=== PATIENT | female | born 1955 | race Caucasian/White ===

== ENCOUNTER 2020-04-06 07:40 | Emergency (ER) | payer SELFPAY ==
[2020-04-06 10:27] LABS: Protime INR 0.97
[2020-04-06 10:33] LABS: Absolute Lymphocytes (CBC) 1.7 K/uL (0.7-4.9); Basophils % 0.8 % (0-1.3); Hematocrit 49.8 % (36.0-45.0); Lymphocytes % 20.5 % (15.3-44.8); MPV 7.8 fL (7.6-11.3); RBC Red Blood Cell Count 5.41 M/uL (3.86-4.86)
[2020-04-06 10:43] LABS: ALT/SGPT 58 U/L (12-78); AST/SGOT 34 U/L (15-37); Albumin 4.7 g/dL (3.4-5.0); Alkaline Phosphatase 120 U/L (45-117); BUN Blood Urea Nitrogen 19 mg/dL (7-18); Bicarbonate 27 mmol/L (21-32); Bilirubin Direct < 0.1 mg/dL (0-0.2); Bilirubin Total 0.3 mg/dL (0.2-1.0); Glucose Level 94 mg/dL (74-106); Magnesium 2.5 mg/dL (1.8-2.4); NT PRO-BNP 97 pg/mL (<125); Protein, Total 8.9 g/dL (6.4-8.2); Sodium Level 139 mmol/L (136-145); Troponin (Emerg Dept Use Only) < 0.02 ng/mL (0.0-0.045)
--- NOTE | 2020-04-06 10:54 | RAD REPORT ---
EXAM DESCRIPTION: Mario Single View04/06/2020 10:49 am CLINICAL HISTORY: Chest pain COMPARISON: none FINDINGS: The lungs are moderately to markedly hyperaerated. The lungs appear clear of acute infiltrate. The heart is normal size IMPRESSION: COPD without visualization acute abnormality
--- NOTE | 2020-04-06 11:32 | ER ---
Nurse's Notes [facility] Name: Kallie Garcia Age: 64 yrs Sex: Female : 1955 Arrival Date: 04/06/2020 Time: 07:44 Bed 3 Private MD: Diagnosis: Chronic fatigue, unspecified Presentation: 04/06 07:46 Chief complaint: Patient states: "I was trying to get ready for work and this morning I ss got so fatigued. I couldn't walk. I couldn't do anything.". Coronavirus screen: Client denies travel out of the [place] in the last 14 days. Ebola Screen: Patient denies exposure to infectious person. Patient denies travel to an Ebola-affected area in the 21 days before illness onset. Initial Sepsis Screen: Does the patient meet any 2 criteria? No. Patient's initial sepsis screen is negative. Does the patient have a suspected source of infection? No. Patient's initial sepsis screen is negative. Risk Assessment: Do you want to hurt yourself or someone else? Patient reports no desire to harm self or others. Onset of symptoms was April 06, 2020. 07:46 Method Of Arrival: Ambulatory ss 07:46 Acuity: LUCINA 3 ss Historical: - Allergies: 07:49 No Known Allergies; ss - Home Meds: 07:49 None [Active]; ss - PMHx: 07:49 COPD; ss - PSHx: 07:49 Appendectomy; nephrectomy; ss - Immunization history:: Adult Immunizations unknown. - Social history:: Smoking status: Patient reports the use of cigarette tobacco products, 1.5 ppd, Patient/guardian denies using alcohol, street drugs, The patient lives with family. - Family history:: not pertinent. Screenin:18 Abuse screen: Denies threats or abuse. Denies injuries from another. Nutritional hb screening: No deficits noted. Tuberculosis screening: No symptoms or risk factors identified. Fall Risk None identified. Assessment: 10:18 General: Appears in no apparent distress. Behavior is calm, cooperative. Pain: Denies hb pain. Neuro: Level of Consciousness is awake, alert, obeys commands, Oriented to person, place, time, situation. Cardiovascular: Capillary refill < 3 seconds Patient's skin is warm and dry. Respiratory: Respiratory effort is even, unlabored, Respiratory pattern is regular, symmetrical. GI: No signs and/or symptoms were reported involving the gastrointestinal system. : No signs and/or symptoms were reported regarding the genitourinary system. EENT: No signs and/or symptoms were reported regarding the EENT system. Derm: Skin is pink, warm \\T\\ dry. Musculoskeletal: No signs and/or symptoms reported regarding the musculoskeletal system. Vital Signs: 07:49 BP 137 / 80; Pulse 91; Resp 18; Temp 98.3(TE); Pulse Ox 97% on R/A; Weight 62.6 kg; ss Height 6 ft. 0 in. (182.88 cm); Pain 0/10; 07:49 Body Mass Index 18.72 (62.60 kg, 182.88 cm) ED Course: 07:44 Patient arrived in ED. mr 07:48 Triage completed. ss 07:49 Arm band placed on right wrist. 09:59 Ophelia Marks MD is Attending Physician. ma2 10:05 Evelin Rodriguez RN is Primary Nurse. hb 10:14 Inserted saline lock: 20 gauge in right antecubital area, using aseptic technique. hb Blood collected. 10:18 Patient has correct armband on for positive identification. Bed in low position. Call hb light in reach. Side rails up X 1. 10:49 XRAY Chest (1 view) In Process Unspecified. EDMS 11:15 Basic Metabolic Panel Sent. sv 11:47 No provider procedures requiring assistance completed. Patient did not have IV access ss during this emergency room visit. Administered Medications: No medications were administered Outcome: 11:31 Discharge ordered by . ma 11:47 Discharged to home via wheelchair, with family. ss 11:47 Condition: good 11:47 Discharge instructions given to patient, family, Instructed on discharge instructions, follow up and referral plans. Demonstrated understanding of instructions, follow-up care. 11:48 Patient left the ED. Signatures: Dispatcher [employer] EDMS Kymberly Pereira RN RN sv Rivera Melony GundersonLeyda sheehan RN RN Evelin Rodriguez, KYAW CARD Ophelia Marks MD MD ma2
--- NOTE | 2020-04-06 11:32 | EDPHYS ---
Physician Documentation [facility] Name: Kallie Garcia Age: 64 yrs Sex: Female : 1955 Arrival Date: 04/06/2020 Time: 07:44 Bed 3 Private MD: ED Physician Ophelia Marks HPI: 04/06 10:44 This 64 yrs old Female presents to ER via Ambulatory with complaints of ma2 Fatigue. 10:44 Onset: The symptoms/episode began/occurred gradually, 1 day(s) ago. Severity of ma2 symptoms: At their worst the symptoms were moderate in the emergency department the symptoms are unchanged. The patient has not experienced similar symptoms in the past. Historical: - Allergies: 07:49 No Known Allergies; ss - Home Meds: 07:49 None [Active]; ss - PMHx: 07:49 COPD; ss - PSHx: 07:49 Appendectomy; nephrectomy; ss - Immunization history:: Adult Immunizations unknown. - Social history:: Smoking status: Patient reports the use of cigarette tobacco products, 1.5 ppd, Patient/guardian denies using alcohol, street drugs, The patient lives with family. - Family history:: not pertinent. ROS: 10:44 Constitutional: Negative for fever, chills, and weight loss. ma2 10:44 All other systems are negative. Exam: 10:44 Constitutional: This is a well developed, well nourished patient who is awake, alert, ma2 and in no acute distress. Head/Face: Normocephalic, atraumatic. Eyes: Pupils equal round and reactive to light, extra-ocular motions intact. Lids and lashes normal. Conjunctiva and sclera are non-icteric and not injected. Cornea within normal limits. Periorbital areas with no swelling, redness, or edema. ENT: Nares patent. No nasal discharge, no septal abnormalities noted. Tympanic membranes are normal and external auditory canals are clear. Oropharynx with no redness, swelling, or masses, exudates, or evidence of obstruction, uvula midline. Mucous membranes moist. Neck: Trachea midline, no thyromegaly or masses palpated, and no cervical lymphadenopathy. Supple, full range of motion without nuchal rigidity, or vertebral point tenderness. No Meningismus. Chest/axilla: Normal chest wall appearance and motion. Nontender with no deformity. No lesions are appreciated. Cardiovascular: Regular rate and rhythm with a normal S1 and S2. No gallops, murmurs, or rubs. Normal PMI, no JVD. No pulse deficits. Respiratory: Lungs have equal breath sounds bilaterally, clear to auscultation and percussion. No rales, rhonchi or wheezes noted. No increased work of breathing, no retractions or nasal flaring. Abdomen/GI: Soft, non-tender, with normal bowel sounds. No distension or tympany. No guarding or rebound. No evidence of tenderness throughout. Back: No spinal tenderness. No costovertebral tenderness. Full range of motion. Skin: Warm, dry with normal turgor. Normal color with no rashes, no lesions, and no evidence of cellulitis. MS/ Extremity: Pulses equal, no cyanosis. Neurovascular intact. Full, normal range of motion. Neuro: Awake and alert, GCS 15, oriented to person, place, time, and situation. Cranial nerves II-XII grossly intact. Motor strength 5/5 in all extremities. Sensory grossly intact. Cerebellar exam normal. Normal gait. Psych: Awake, alert, with orientation to person, place and time. Behavior, mood, and affect are within normal limits. Vital Signs: 07:49 BP 137 / 80; Pulse 91; Resp 18; Temp 98.3(TE); Pulse Ox 97% on R/A; Weight 62.6 kg; ss Height 6 ft. 0 in. (182.88 cm); Pain 0/10; 07:49 Body Mass Index 18.72 (62.60 kg, 182.88 cm) MDM: 10:22 Patient medically screened. nc2 10:44 Differential Diagnosis. nc2 11:31 Data reviewed: vital signs, nurses notes. Counseling: I had a detailed discussion with ma2 the patient and/or guardian regarding: the historical points, exam findings, and any diagnostic results supporting the discharge/admit diagnosis, the presence of at least one elevated blood pressure reading (>120/80) during this emergency department visit, the need for outpatient follow up. Response to treatment: the patient's symptoms have markedly improved after treatment. 04/06 10:01 Order name: Basic Metabolic Panel nc2 04/06 10:01 Order name: CBC with Diff; Complete Time: 11:21 ma2 04/06 10:01 Order name: LFT's; Complete Time: : nc04/06 10:01 Order name: Magnesium; Complete Time: : [facility] 04/06 10:01 Order name: NT PRO-BNP; Complete Time: : [facility] 04/06 10:01 Order name: PT-INR; Complete Time: : [facility] 04/06 10:01 Order name: Troponin (emerg Dept Use Only); Complete Time: 11: [facility] 04/06 10:01 Order name: XRAY Chest (1 view); Complete Time: : [facility] 04/06 10:01 Order name: EKG; Complete Time: :04/06 10:01 Order name: Cardiac monitoring; Complete Time: : [facility] 04/06 10:01 Order name: EKG - Nurse/Tech; Complete Time: : [facility] 04/06 10:01 Order name: IV Saline Lock; Complete Time: [facility] 04/06 10:01 Order name: Labs collected and sent; Complete Time: 04/06 10:01 Order name: Basic Metabolic Panel; Complete Time: : [facility] 04/06 10:01 Order name: O2 Per Protocol; Complete Time: [facility] 04/06 10:01 Order name: O2 Sat Monitoring; Complete Time: 10:18 ma2 Administered Medications: No medications were administered Disposition: 04/06/20 11:31 Discharged to Home. Impression: Chronic fatigue, unspecified. - Condition is Stable. - Discharge Instructions: Fatigue, Weakness, [id number]. - Prescriptions for Hydrocortisone 0.5 % Topical Cream - apply 1 application by TOPICAL route every 12 hours As needed; 30 gram. - Medication Reconciliation Form, Thank You Letter, Antibiotic Education, Prescription Opioid Use form. - Follow up: Private Physician; When: Tomorrow; Reason: If symptoms return. Signatures: Dispatcher [employer] Leyda Colunga RN RN Evelin Rodriguez RN RN Ophelia Marks MD MD nc2 Corrections: (The following items were deleted from the chart) 11:48 11:31 04/06/2020 11:31 Discharged to Home. Impression: Chronic fatigue, unspecified. ss Condition is Stable. Prescriptions for Hydrocortisone 0.5 % Topical Cream - apply 1 application by TOPICAL route every 12 hours As needed; 30 gram. and Forms are Medication Reconciliation Form, Thank You Letter, Antibiotic Education, Prescription Opioid Use. Follow up: Private Physician; When: Tomorrow; Reason: If symptoms return. ma2
[2020-04-06 11:54] VITALS: BP 137/80; TEMP 98.3; O2SAT 97
== END 2020-04-06 11:48 | disposition home or self-care (01) ==
LOC: ER 07:40
DX: R53.82 Chronic fatigue, unspecified (principal); F17.210 Nicotine dependence, cigarettes, uncomplicated
CPT/HCPCS: 36415; 71045; 80048; 80076; 83735; 83880; 84484; 85025; 85610; 99283

== ENCOUNTER 2022-03-02 11:55 | Emergency (ER) | payer SELFPAY ==
--- OUTSIDE RECORDS SUMMARY | 2022-03-02 11:57 | XMS REPORT | Continuity of Care Document ---
:1955 Author Organization [facility] t Address [address] [place] [address] Care Team Providers Name Role Phone JOCY GAYTAN Primary Care Physician Unavailable CARMEL ALAMO Attending Clinician Unavailable Carmel Alamo MD Attending Clinician CARMEL ALAMO Admitting Clinician Unavailable Problems Condition Condition Condition Status Onset Resolution Last Treating Co mments Source Name Details Category Date Date Treatment Clinician Date No known No known Disease Unive rs active active ity of problems problems [facility] Allergies, Adverse Reactions, Alerts Allergy Allergy Status Severity Reaction(s) Onset Inactive Treating Comm ents Source Name Type Date Date Clinician NO KNOWN Drug Active Univers ALLERGIE Class ity of S [facility] Social History Social Habit Start Date Stop Date Quantity Comments Source Exposure to 2022-02-09 2022-02-19 Not sure [facility] SARS-CoV-2 (event) 00:00:00 09:07:00 Medica l Branch Sex Ass[birth year] [facility] 00:00:00 00:00:00 Medical Branch Smoking Status Start Date Stop Date Source Tobacco smoking consumption Univ [facility] Medical unknown Branch Medications Ordered Filled Start Stop Current Ordering Indication Dosage Frequency Signature Comments Components Source Medication Medication Date Date Medication? Clinician (SIG) Name Name nitroglycer 3-[address] 1 Uni vers in 0.4 mg 1-02 tablet ity of sublingual 00:00: under the [place] tablet 00 tongue Medical every 5 Branch (five) minutes as needed for Chest pain. aspirin 81 2022-0 Yes 81mg Take 1 Unive rs mg chewable 1-02 tablet by ity of tablet 00:00: mouth in [place] 00 the Medical morning. Branch metoprolol 3-0 Yes [id number] 25mg Take 1 U nivers succinate 1-02 tablet by ity o f XL 25 mg 24 00:00: mouth in [place] hr tablet 00 the Medical morning. Branch nitroglycer 3-[address] 1 Uni vers in 0.4 mg 1-02 tablet ity of sublingual 00:00: under the [place] tablet 00 tongue Medical every 5 Branch (five) minutes as needed for Chest pain. aspirin 81 2022-0 Yes 81mg Take 1 Unive rs mg chewable 1-02 tablet by ity of tablet 00:00: mouth in [place] 00 the Medical morning. Branch metoprolol 3-0 Yes [id number] 25mg Take 1 U nivers succinate 1-02 tablet by ity o f XL 25 mg 24 00:00: mouth in [place] hr tablet 00 the Medical morning. Branch nitroglycer 3-[address] 1 Uni vers in 0.4 mg 1-02 tablet ity of sublingual 00:00: under the [place] tablet 00 tongue Medical every 5 Branch (five) minutes as needed for Chest pain. aspirin 81 3-0 Yes 81mg Take 1 Unive rs mg chewable 1-02 tablet by ity of tablet 00:00: mouth in [place] 00 the Medical morning. Branch metoprolol 2023-0 Yes [id number] 25mg Take 1 U nivers succinate 1-02 tablet by ity o f XL 25 mg 24 00:00: mouth in [place] hr tablet 00 the Medical morning. Branch metoprolol 2023-0 Yes 25mg Take 1 Unive rs succinate 1-02 tablet by ity o f XL 25 mg 24 00:00: mouth in [place] hr tablet 00 the Medical morning. Branch nitroglycer 2023-[address] 1 Uni vers in 0.4 mg 1-02 tablet ity of sublingual 00:00: under the [place] tablet 00 tongue Medical every 5 Branch (five) minutes as needed for Chest pain. aspirin 81 Yes 81mg Take 1 Unive rs mg chewable 02 tablet by ity of tablet 00:00: mouth in [place] 00 the Medical morning. Branch metoprolol 2022-0 2023- No 25mg Take 1 Univ ers succinate 02-19- tablet by ity of XL 25 mg 24 00:00: 00:00 mouth in [place] hr tablet 00 :00 the Medical morning. Branch losartan 25 2021-02 Yes [id number] 25mg Take 25 mg Univers mg tablet 0-18 by mouth ity of 00:00: in the [place] 00 morning. Medical Branch fluticasone 2021-02 Yes [id number] TAKE 1 Univers propion-luis 0-18 PUFF BY ity o f meteroL 00:00: MOUTH [place] TWICE A Medical mcg/actuati DAY Branch on AePB FLUoxetine 2021-02 Yes [id number] 20mg Take 20 mg Univers 20 mg 0-18 by mouth ity of capsule 00:00: in the [place] 00 morning. Medical Branch losartan 25 2021-02 Yes [id number] 25mg Take 25 mg Univers mg tablet 0-18 by mouth ity of 00:00: in the [place] 00 morning. Medical Branch fluticasone 2021-02 Yes [id number] TAKE 1 Univers propion-luis 0-18 PUFF BY ity o f meteroL 00:00: MOUTH TWICE A Medical mcg/actuati DAY Branch on AePB FLUoxetine 2021-02 Yes [id number] 20mg Take 20 mg Univers 20 mg 0-18 by mouth ity of capsule 00:00: in the [place] 00 morning. Medical Branch losartan 25 2021-02 Yes [id number] 25mg Take 25 mg Univers mg tablet 0-18 by mouth ity of 00:00: in the [place] 00 morning. Medical Branch fluticasone 2021-02 Yes [id number] TAKE 1 Univers propion-luis 0-18 PUFF BY ity o f meteroL 00:00: MOUTH TWICE A Medical mcg/actuati DAY Branch on AePB FLUoxetine 2021-02 Yes [id number] 20mg Take 20 mg Univers 20 mg 0-18 by mouth ity of capsule 00:00: in the [place] 00 morning. Medical Branch losartan 25 2021-02 Yes [id number] 25mg Take 25 mg Univers mg tablet 0-18 by mouth ity of 00:00: in the [place] 00 morning. Medical Branch fluticasone 2021-02 Yes [id number] TAKE 1 Univers propion-luis 0-18 PUFF BY ity o f meteroL 00:00: MOUTH TWICE A Medical mcg/actuati DAY Branch on AePB FLUoxetine 2021-02 Yes [id number] 20mg Take 20 mg Univers 20 mg 0-18 by mouth ity of capsule 00:00: in the [place] 00 morning. Medical Branch losartan 25 2021-02 Yes [id number] 25mg Take 25 mg Univers mg tablet 0-18 by mouth ity of 00:00: in the [place] 00 morning. Medical Branch fluticasone 2021-02 Yes [id number] TAKE 1 Univers propion-luis 0-18 PUFF BY ity o f meteroL 00:00: MOUTH TWICE A Medical mcg/actuati DAY Branch on AePB FLUoxetine 2021-02 Yes [id number] 20mg Take 20 mg Univers 20 mg 0-18 by mouth ity of capsule 00:00: in the [place] 00 morning. Medical Branch losartan 25 2021-02 Yes [id number] 25mg Take 25 mg Univers mg tablet 0-18 by mouth ity of 00:00: in the [place] 00 morning. Medical Branch fluticasone 2021-02 Yes [id number] TAKE 1 Univers propion-luis 0-18 PUFF BY ity o f meteroL 00:00: MOUTH TWICE A Medical mcg/actuati DAY Branch on AePB FLUoxetine 2021-02 Yes [id number] 20mg Take 20 mg Univers 20 mg 0-18 by mouth ity of capsule 00:00: in the [place] 00 morning. Medical Branch losartan 25 2021-02 Yes [id number] 25mg Take 25 mg Univers mg tablet 0-18 by mouth ity of 00:00: in the [place] 00 morning. Medical Branch fluticasone 2021-02 Yes [id number] TAKE 1 Univers propion-luis 0-18 PUFF BY ity o f meteroL 00:00: MOUTH [place] 232-14 00 TWICE A Medical mcg/actuati DAY Branch on AePB FLUoxetine 2021-02 Yes [id number] 20mg Take 20 mg Univers 20 mg 0-18 by mouth ity of capsule 00:00: in the [place] 00 morning. Medical Branch losartan 25 2021-02 Yes [id number] 25mg Take 25 mg Univers mg tablet 0-18 by mouth ity of 00:00: in the [place] 00 morning. Medical Branch fluticasone 2021-02 Yes [id number] TAKE 1 Univers propion-luis 0-18 PUFF BY ity o f meteroL 00:00: MOUTH [place] [address] 00 TWICE A Medical mcg/actuati DAY Branch on AePB FLUoxetine 2021-02 Yes [id number] 20mg Take 20 mg Univers 20 mg 0-18 by mouth ity of capsule 00:00: in the [place] 00 morning. Medical Branch atorvastati 2021-02 Yes [id number] 80mg Take 80 mg Univers n 80 mg 0-13 by mouth ity of tablet 00:00: in the [place] 00 morning. Medical Branch atorvastati 2021-02 Yes [id number] 80mg Take 80 mg Univers n 80 mg 0-13 by mouth ity of tablet 00:00: in the [place] 00 morning. Medical Branch atorvastati 2021-02 Yes [id number] 80mg Take 80 mg Univers n 80 mg 0-13 by mouth ity of tablet 00:00: in the [place] 00 morning. Medical Branch atorvastati 2021-02 Yes [id number] 80mg Take 80 mg Univers n 80 mg 0-13 by mouth ity of tablet 00:00: in the [place] 00 morning. Medical Branch atorvastati 2021-02 Yes [id number] 80mg Take 80 mg Univers n 80 mg 0-13 by mouth ity of tablet 00:00: in the [place] 00 morning. Medical Branch atorvastati 2021-02 Yes [id number] 80mg Take 80 mg Univers n 80 mg 0-13 by mouth ity of tablet 00:00: in the [place] 00 morning. Medical Branch atorvastati 2021-02 Yes [id number] 80mg Take 80 mg Univers n 80 mg 0-13 by mouth ity of tablet 00:00: in the [place] 00 morning. Medical Branch atorvastati 2021-02 Yes [id number] 80mg Take 80 mg Univers n 80 mg 0-13 by mouth ity of tablet 00:00: in the [place] morning. [facility] Vital Signs Vital Name Observation Time Observation Value Comments Source Systolic blood 2022-01-16 20:29:00 109 mm[Hg] Univer sity of pressure [facility] Diastolic blood 2022-01-16 20:29:00 60 mm[Hg] Unive rsity of pressure [facility] Heart rate 2022-01-16 20:29:00 70 /min [facility] Body temperature 2022-01-16 20:29:00 36.11 [facility]is [facility] height 2022-01-16 20:29:[address] [facility] Body weight 2022-01-16 20:29:[address] [facility] BMI 2022-01-16 20:29:00 22.04 kg/m2 [facility] Oxygen saturation in 2022-01-16 20:29:00 95 /min [facility] blood by [facility] Pulse oximetry Branch Procedures Procedure Date / Time Performed Performing Clinician [facility] e EKG-12 LEAD 2022-01-16 20:39:[address] [facility] HB ECG ROUTINE & 2022-01-16 20:39:27 Carmel Alamo [facility] RHYTHM [facility] Encounters Start End Encounter Admission Attending Care Care Encounter Source Date/Time Date/Time Type Type Clinicians Facility Department ID 2022-05-10 2022-05-10 Outpatient R CALLY [facility] [id number] Univers 14:30[facility] 2022-02-27 Outpatient R CALLY [facility] [id number] Univers 11:00[facility]00 [facility]-02-21 2022-02-21 Telephone Cally [facility] [id number] Univers 00:00:00 00:00:00 Carmel SLAUGHTER [id number] [id number] [id number] Fl dicmt NAL [address] [place] [address] 2022-02-19 2022-02-19 Outpatient R CALLY [facility] [id number] Univers 09:09:03 23:59:00 [facility] 2022-02-19 2022-02-19 [facility] [id number] Univers 00:00:00 00:00:00 Sendil Amarjit SLAUGHTER [id number] [id number] [id number] [address] 2022-02-18 2022-02-18 [facility] [id number] Univers 00:00:00 00:00:00 Sendil Amarjit SLAUGHTER [id number] [id number] [id number] [address] 2022-02-13 2022-02-13 Outpatient R CALLY [facility] [id number] Univers 08:00:00 23:59:00 [facility]IL [facility] 2022-02-09 2022-02-09 Boyce [facility] [id number] Univers 00:00:00 00:00:00 Sendil Amarjit SLAUGHTER [id number] [id number] [id number] [address] 2022-02-07 2022-02-07 Outpatient R CALLY [facility] [id number] Univers 10:07:28 23:59:00 [facility] 2022-02-07 2022-02-07 Outpatient R CALLY [facility] [id number] Univers 11:00:00 11:00:00 [facility]ENDIL [facility] 2022-01-16 2022-01-16 Office [facility] [id number] Univers 14:30:00 15:14:21 Visit Sendil [id number] [facility] [id number] Messi HUANG [id number] [place] [id number] [facility] 2022-01-16 2022-01-16 Outpatient Julee ALAMO [facility] [id number] [facility] 14:30:00 15:14:21 [facility] Results This patient has no known results.
--- NOTE | 2022-03-02 12:07 | ER ---
Nurse's Notes [facility] Name: Kallie Garcia Age: 66 yrs Sex: Female : 1955 Arrival Date: 03/02/2022 Time: 11:58 Bed 15 Private MD: Diagnosis: Presentation: 03/02 12:04 Chief complaint: EMS states: Left sided facial swelling since this morning. Denies hb pain/SOB/dizziness. No visible swelling noted. VAN Negative. Coronavirus screen: At this time, the client does not indicate any symptoms associated with coronavirus-19. Ebola Screen: No symptoms or risks identified at this time. Initial Sepsis Screen: Does the patient meet any 2 criteria? No. Patient's initial sepsis screen is negative. Does the patient have a suspected source of infection? No. Patient's initial sepsis screen is negative. Risk Assessment: Do you want to hurt yourself or someone else? Patient reports no desire to harm self or others. Onset of symptoms was March 02, 2022. 12:04 Method Of Arrival: EMS: [facility] 12:04 Acuity: LUCINA 4 hb 12:05 Note Pt stated "I feel fine, I didn't want to come to the ER but my work made me, I hb want to leave and get my car and go to my doctor in [place]." Charge nurse notified. Vital Signs: 12:04 BP 136 / 82; Pulse 66; Resp 16; Temp 98.1(TE); Pulse Ox 100% on R/A; Pain 0/10; hb ED Course: 11:58 Patient arrived in ED. eb 12:06 Triage completed. hb Administered Medications: No medications were administered Outcome: 12:07 Patient left the ED. hb Signatures: Evelin Rodriguez, RN RN Sobia Benton
[2022-03-02 12:28] VITALS: BP 136/82; TEMP 98.1; O2SAT 100
== END 2022-03-02 12:07 | disposition left against medical advice (07) ==
LOC: ER 11:55
DX: Z53.21 Procedure and treatment not carried out due to patient leaving prior to being seen by health care provider (principal)
CPT/HCPCS: 99282